=== PATIENT | male | born 1940 | race Caucasian/White ===

== ENCOUNTER → 2020-12-23 14:20 | Outpatient (BNVA) | payer MEDICARE, SELFPAY | PROVIDERS: PCP Internal Medicine; Visit Provider Urology | DX: Z13.89 Encounter for screening for other disorder (principal) | CPT/HCPCS: Q3014 ==

== ENCOUNTER → 2021-12-23 13:14 | Outpatient (BNVA) | payer MEDICARE, OTHER, SELFPAY | PROVIDERS: PCP Internal Medicine; Visit Provider Urology | DX: N40.0 Benign prostatic hyperplasia without lower urinary tract symptoms (principal); E29.1 Testicular hypofunction; N48.6 Induration penis plastica | CPT/HCPCS: 51798; 99212 ==

== ENCOUNTER 2022-12-28 14:11 | Outpatient (AMB) | payer MEDICARE, SELFPAY ==
--- NOTE | 2022-12-28 14:18 | A.OFFVIS_ITS ---
Intake Intake Visit Reasons: One year pvr Intake Note: * Patient presents today for a 1 year follow-up with PVR. * Meds- None * Allergies to Antibiotic- Penicillin * Blood Thinner- None * PVR- 0ml Middleware Engineer Required: No Accompanied by: Self / Same As Patient Allergies penicillin V Allergy (Unknown, Verified 12/28/22 14:19) Unknown tamsulosin [Flomax] Allergy (Unknown, Verified 12/28/22 14:19) Unknown Medication List - Last Reconciled 12/28/22 by Cha Conn MD fenofibrate nanocrystallized 145 mg PO DAILY oxycodone 10 mg PO PRN propranolol 20 mg PO TID PRN simvastatin 20 mg PO DAILY HPI HPI Comments History of Present Illness Details Benito is an 82-year-old male who presents for 1 year follow-up to check PVR. 12/29/22-- He is an 82-year-old male and patient of Dr. Diaz who is being followed for BPH symptoms and has symptoms of ED. Mentions having history of renal calculi 30 years ago. Evaluation today-- Blood: 80 Truong/uL, leukocytes: negative. Bladder scan PVR: 0 mL. Prostate exam-- smooth and irregular and no hard suspicious nodules palpated. I have discussed microscopic hematuria may be due to but not limited to kidney stones, BPH, cystitis, mass in the urinary tract. I have discussed work up to include evaluation of the urinary tract which may include imaging and cystoscopy. Plan: PSA blood work prior was ordered. Renal US prior was ordered. Cystoscopy discussed to be scheduled. Follow-up with Dr. Diaz after 3 months. [facility] Medical History Asthma BPH (benign prostatic hyperplasia) Erectile dysfunction Hematuria Hypogonadism in male Incomplete emptying of bladder Peyronie's disease Surgical History History of surgery Review of Systems Const All systems reviewed & are unremarkable except as noted in HPI and below Reports no additional complaints Eyes Reports no additional complaints ENT Reports no additional complaints Card Denies dyspnea Resp Denies cough and Denies dyspnea GI Reports no additional complaints Musc Reports no additional complaints Skin/Breast Denies rash and Denies unusual bruising Neuro Reports no additional complaints Psych Reports no additional complaints Endo Reports no additional complaints Niraj/Lymph Reports no additional complaints Aller/Immun Reports no additional complaints Physical Exam Const General: healthy appearing, no acute distress and well developed Orientation/consciousness: patient oriented x3 HEENT Head: Yes normocephalic and Yes atraumatic Eyes Conjunctivae: conjunctivae normal Neck Neck: Yes normal visual inspection Chest Chest palpation & inspection: normal inspection of the chest Resp Effort & Inspection: normal respiratory effort Cardio Rate: regular rate GI Inspection: Yes normal to inspection Palpation (GI): Soft to palpation Other: Prostate Exam: smooth, irregular Skin General skin exam: no rashes or lesions noted Neuro General: patient oriented x3 Extrem General: No pedal edema Psych Appearance: grossly normal Affect: normal affect Office Procedures Post Void Residual Post Residual Void Post Void Residual (PVR): 0 [id number] Void Residual by ultrasound Results AMB Urinalysis, Automated UA Leukoctes 0 Markel/uL Last Edit by PARKER Gilliam on 12/28/22 14:37 UA Nitrite Negative Last Edit by PARKER Gilliam on 12/28/22 14:37 UA Urobilinogen 0.2 mg/dL Last Edit by PARKER Gilliam on 12/28/22 14:3 7 UA Protein 0 mg/dL Last Edit by PARKER Gilliam on 12/28/22 14:37 UA pH 6.0 Last Edit by PARKER Gilliam on 12/28/22 14:37 UA Blood 80 Truong/uL Last Edit by PARKER Gilliam on 12/28/22 14:37 2+ Myrna Montemayor 12/28/22 14:37 UA Specific [place] 1.030 Last Edit by PARKER Gilliam on 12/28/22 14: 37 UA Ketone Negative Last Edit by PARKER Gilliam on 12/28/22 14:37 UA Bilirubin 0 mg/dL Last Edit by PARKER Gilliam on 12/28/22 14:37 UA Glucose 0 mg/dL Last Edit by PARKER Gilliam on 12/28/22 14:37 Results Reviewed Results Reviewed: Laboratory Last Values Urine pH (Auto) 6.0 12/28/22 14:26 Specific [place] (Auto) 1.030 12/28/22 14:26 Urine Protein (Auto) 0 mg/dL 12/28/22 14:26 Glucose (UA)(Auto) 0 mg/dL 12/28/22 14:26 Urine Ketones (Auto) Negative 12/28/22 14:26 Urine Blood (Auto) 80 Truong/uL 12/28/22 14:26 Urine Nitrite (Auto) Negative 12/28/22 14:26 Urine Bilirubin (Auto) 0 mg/dL 12/28/22 14:26 Urine Urobilinogen (Auto) 0.2 mg/dL 12/28/22 14:26 Leukocyte Esterase (Auto) 0 Markel/uL 12/28/22 14:26 Assessment & Plan Assessment & Plan (1) BPH (benign prostatic hyperplasia): Code(s): N40.0 - Benign prostatic hyperplasia without lower urinary tract symptoms (2) Hypogonadism in male: Code(s): E29.1 - Testicular hypofunction (3) Microscopic hematuria: Code(s): R31.29 - Other microscopic hematuria (4) Microscopic hematuria: Code(s): R31.29 - Other microscopic hematuria Plan PSA blood work prior was ordered. Renal US prior was ordered. Cystoscopy discussed to be scheduled. Follow-up with Dr. Diaz after 3 months. Orders: Orders US retroperitoneal comp 12/28/22 N40.0 - Benign prostatic hyperplasia without lower urinary tract symptoms, R31.29 - Other microscopic hematuria PSA,Total (Free>4and<10) 2 Months N40.0 - Benign prostatic hyperplasia without lower urinary tract symptoms AMB Urinalysis Automated 12/28/22 Z13.9 - Encounter for screening, unspecified AMB Post Void Residual by ultrasound 12/28/22 N39.8 - Other specified disorders of urinary system Patient Instructions: The patient had an opportunity to ask questions regarding treatment plan. All questions were answered. Laboratory studies and physical exam results were discussed and reviewed in detail. No major barriers to understanding were identified. The patient expressed understanding and agreement with the above treatment plan. The patient is aware they should contact our office by phone for worsening of their current condition or the appearance of new symptoms. Compliance is encouraged with any medications and followup testing that is ordered. It is a privilege to be allowed the opportunity to participate in the urologic care of your patient. If you have any questions or concerns regarding treatment for the above conditions please do not hesitate to contact me. The office telephone contact is [phone]. This note is constructed in part using voice recognition software. While every effort has been made to ensure accuracy pet walker errors may have been included. Yours sincerely, Cha Conn MD Coding Level of Care Code Est Pt Level 4 (48165) Diagnoses BPH (benign prostatic hyperplasia) N40.0 Hypogonadism in male E29.1 Microscopic hematuria R31.29 CPT Codes Post Residual Void - PVR CPT Code: 10913-Ghbr Void Residual by ultrasound ([id number])
== END 2022-12-28 14:55 | disposition home or self-care (01) ==
LOC: HO.HUSH 14:11
PROVIDERS: PCP Internal Medicine; Visit Provider Urology
DX: N40.0 Benign prostatic hyperplasia without lower urinary tract symptoms (principal); E29.1 Testicular hypofunction; R31.29 Other microscopic hematuria
CPT/HCPCS: 99214

== ENCOUNTER → 2022-12-28 14:11 | Outpatient (BNVA) | payer MEDICARE, SELFPAY | PROVIDERS: PCP Internal Medicine; Visit Provider Urology | DX: R31.29 Other microscopic hematuria (principal); N40.0 Benign prostatic hyperplasia without lower urinary tract symptoms; E29.1 Testicular hypofunction | CPT/HCPCS: 51798; 99212 ==

== ENCOUNTER 2023-03-20 09:34 | Outpatient (REF) | payer MEDICARE, SELFPAY ==
--- NOTE | ~2023-03-20 | US_ITS ---
EXAMINATION: US RETROPERITONEAL COMPLETE (RENAL) CLINICAL INFORMATION: Benign prostatic hyperplasia without lower urinary tract symptoms. COMPARISON: None available. TECHNIQUE: Real-time imaging of the kidneys and bladder. FINDINGS: RIGHT KIDNEY: 9.4 x 5.7 x 5.1 cm (SAG x AP x TRV). The kidney is normal in size, contour, and echogenicity. Renal cortical thickness is normal. No hydronephrosis. 1.6 cm Bosniak 1 simple cyst in the mid kidney. 2.6 cm Bosniak 1 simple cyst in the lower kidney. 1.2 cm Bosniak 2 cyst with thin mural calcium measuring less than 2 mm in the mid kidney. No follow-up imaging is recommended. 5 mm nonobstructing calculus in the upper pole. LEFT KIDNEY: 10.8 x 5.4 x 4.6 cm (SAG x AP x TRV). The kidney is normal in size, contour, and echogenicity. Renal cortical thickness is normal. No focal parenchymal lesions or hydronephrosis. 2 mm nonobstructing calculus in the upper pole. BLADDER: Well distended and normal. Bilateral ureteral jets are demonstrated. Prevoid bladder volume is 171 mL. Postvoid bladder volume is 56 mL. ADDITIONAL FINDINGS: Prostate volume 31 mL. US/US retroperitoneal comp IMPRESSION: Mildly enlarged prostate, 31 mL. No hydronephrosis. Post void bladder residual volume 56 mL. Bilateral nonobstructing renal calculi.
== END 2023-03-20 09:35 | disposition home or self-care (01) ==
LOC: HO.US 09:34
PROVIDERS: PCP Internal Medicine; Visit Provider Urology
DX: N40.0 Benign prostatic hyperplasia without lower urinary tract symptoms (principal); R31.29 Other microscopic hematuria
CPT/HCPCS: 76770

== ENCOUNTER 2023-04-04 08:47 | Outpatient (AMB) | payer MEDICARE, SELFPAY ==
--- NOTE | 2023-04-04 08:55 | MHC.OFFVIS ---
Intake Intake Visit Reasons: Cysto/US/PSA(set) Intake Note: Patient is Present for Follow Up Cystoscopy/us/psa Urology Medication: None Antibiotic Allergies: Penicillin Blood Thinners: None Pharmacy: [facility] Disposable Cystoscope LOT: EXP: Allergies penicillin V Allergy (Unknown, Verified 04/04/23 08:56) Unknown tamsulosin [Flomax] Allergy (Unknown, Verified 04/04/23 08:56) Unknown HPI HPI Comments History of Present Illness Details Benito Hua is a very pleasant male. They are a patient of Dr Byrd. They are seen in the office today for the following urologic conditions. - lower urinary tract symptoms Here for cystoscopy Episode of microscopic hematuria Large median lobe prostate regrowth - prior procedure many years ago Discussed intervention Would like to continue to follow-up Initiate finasteride Imaging renal cyst stable Prostate/Bladder: Benign prostatic hyperplasia (BPH) was diagnosed years ago - prior Tulip of prostate Severity of the symptoms that is moderate. Aggravating factors include fluid intake. Alleviating factors include avoiding liquids. Current medication(s) include none - CT stuffy nose with Flomax Recent labs included a PSA (prostate-specific antigen) May 2014 0.5, 10/24 1.0, 11/25 0.7. Investigative studies included a uroflow maximum flow 9.4, post void residual 94 cc. stable. Erectile dysfunction: discussed use of Viagra and other oral medications - decreased 2014. Symptoms have been present for/since years ago. Recent labs included a testosterone level - low. Current symptoms include trouble getting an erection, trouble sustaining an erection, reduced sexual desire. Severity of the symptoms is moderate. Also noted to have some deviation in the penis. We discussed Peyronie's disease. Treatment options were presented. Hypogonadism: Not interested in therapy. The patient also reports loss of libido occurring frequently. Other symptoms include decreased libido, fatigue, muscle weakness. Has been on testosterone gel in the past. [facility] Medical History Hematuria Asthma Peyronie's disease Hypogonadism in male Erectile dysfunction Incomplete emptying of bladder BPH (benign prostatic hyperplasia) Surgical History History of surgery Review of Systems Const Denies chills and Denies fever(s) Card Reports no additional complaints and Denies syncope Resp Denies cough GI Denies abdominal pain and Denies heartburn Reports as per HPI and Denies change in libido Neuro Denies syncope Psych Denies change in libido Endo Denies change in libido Physical Exam Const General: cooperative, healthy appearing, comfortable and no acute distress Orientation/consciousness: patient oriented x3 HEENT Face and sinus: Yes normal facial exam Mouth: moist mucous membranes Neck Neck: Yes normal visual inspection, Yes full ROM and Yes trachea midline Chest Chest palpation & inspection: normal inspection of the chest Resp Effort & Inspection: normal respiratory effort, able to speak in complete sentences and no respiratory distress GI Inspection: Yes normal to inspection Back/Spine/Pelvis Cervical Spine: normal cervical lordosis Thoracic/Lumbar Spine: thoracic and lumbar spine normal to inspection Skin General skin exam: no rashes or lesions noted Neuro General: patient oriented x3, gait normal, tone normal and moves all extremities Extrem General: Yes normal to inspection and Yes capillary refill normal Office Procedures Cystoscopy Consent Discussed risk and benefit or proposed procedure with the patient. Information consent for procedure given to the patient. Discussed technical aspects, risks, benefits and alternatives in full. Addressed all of the patient's questions and concerns regarding the procedure. The patient demonstrated knowledge and understanding. They wish to proceed with this procedure. Preparation The patient was prepped in the usual manner. A computer console operator was present and in the room. Genitalia was prepped with betadine solution in a sterile manner. Lidocaine Jelly 2% was placed into the urethra and 16Fr flexible Olympus cystoscope was inserted into the meatus after adequate lubrication. 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 - [id number] DISPOSABLE SCOPE URO-G FLEXIBLE SCOPE Procedure code (CPT) selection complete Office Meds lidocaine HCl 2 % mucosal jelly in applicator Performing Provider: Pantera Diaz MD [place] [facility] [place] [facility] Administered by: Jose Chambers LPN on 04/04/23 09:04 Dose Route Admin Location Dispensed Lot Number Expiration Date [facility] Digital Marketing Coordinator 10 mL intra-urethral 10 mL nitrofurantoin monohydrate/macrocrystals 100 mg capsule Performing Provider: Pantera Diaz MD Performing Location: [facility] [place] [facility] Administered by: Jose Chambers LPN on 04/04/23 09:04 Dose Route Admin Location Dispensed Lot Number Expiration Date NDC Digital Marketing Coordinator 100 mg PO 1 cap naproxen 500 mg tablet Performing Provider: Pantera Diaz MD Performing Location: [facility] [place] [facility] Administered by: Jose Chambers LPN on 04/04/23 09:04 Dose Route Admin Location Dispensed Lot Number Expiration Date NDC Digital Marketing Coordinator 500 mg PO 1 tab Results AMB Urinalysis, Automated UA Leukoctes 0 Markel/uL Last Edit by PARKER Hadley on 04/04/23 09:00 UA Nitrite Negative Last Edit by Shanon Dorman A on 04/04/23 09:00 UA Urobilinogen 0.2 mg/dL Last Edit by Shanon Dorman A on 04/04/23 09:00 UA Protein 0 mg/dL Last Edit by Shanon Dorman A on 04/04/23 09:00 UA pH 6.0 Last Edit by Shanon Dorman A on 04/04/23 09:00 UA Blood 10 Truong/uL Last Edit by MICHELLE HadleyA on 04/04/23 09:00 UA Specific [place] 1.020 Last Edit by Shanon Dorman A on 04/04/23 09:00 UA Ketone Negative Last Edit by MICHELLE HadleyA on 04/04/23 09:00 UA Bilirubin 0 mg/dL Last Edit by Shanon Dorman A on 04/04/23 09:00 UA Glucose 0 mg/dL Last Edit by Shanon Dorman A on 04/04/23 09:00 Results Reviewed Results Reviewed: Laboratory Last Values Urine pH (Auto) 6.0 04/04/23 08:57 Specific [place] (Auto) 1.020 04/04/23 08:57 Urine Protein (Auto) 0 mg/dL 04/04/23 08:57 Glucose (UA)(Auto) 0 mg/dL 04/04/23 08:57 Urine Ketones (Auto) Negative 04/04/23 08:57 Urine Blood (Auto) 10 Truong/uL 04/04/23 08:57 Urine Nitrite (Auto) Negative 04/04/23 08:57 Urine Bilirubin (Auto) 0 mg/dL 04/04/23 08:57 Urine Urobilinogen (Auto) 0.2 mg/dL 04/04/23 08:57 Leukocyte Esterase (Auto) 0 Markel/uL 04/04/23 08:57 Assessment & Plan Assessment & Plan (1) Peyronie's disease: Code(s): N48.6 - Induration penis plastica (2) Hypogonadism in male: Code(s): E29.1 - Testicular hypofunction (3) BPH (benign prostatic hyperplasia): Code(s): N40.0 - Benign prostatic hyperplasia without lower urinary tract symptoms Qualifiers: Lower urinary tract symptom presence: symptoms present Lower urinary tract symptom detail: weak urinary stream Qualified Code(s): N40.1 - Benign prostatic hyperplasia with lower urinary tract symptoms; R39.12 - Poor urinary stream Plan Trial finasteride Orders: Orders AMB Cystoscopy 04/04/23 R31.29 - Other microscopic hematuria PSA,Total (Free>4and<10) 03/09/23 N40.0 - Benign prostatic hyperplasia without lower urinary tract symptoms AMB Urinalysis Automated 04/04/23 Z13.9 - Encounter for screening, unspecified Medications: New finasteride 5 mg PO DAILY 90 tabs 1RF 90 days N13.8 - Other obstructive and reflux uropathy, N40.0 - Benign prostatic hyperplasia without lower urinary tract symptoms, N40.1 - Benign prostatic hyperplasia with lower urinary tract symptoms, R33.9 - Retention of urine, unspecified Patient Instructions: Imaging studies, laboratory and physical exam results were discussed and reviewed in detail. No major barriers to patient understanding were identified. An opportunity to ask questions regarding the treatment plan was provided. All questions were answered. The patient expressed understanding and agreement with the above treatment plan. The patient is aware they should contact our office by phone for worsening of their current condition or the appearance of new urologic symptoms. Compliance is encouraged with any medications and followup testing that is ordered. It is a privilege to participate in the urologic care of your patient. If you have any questions or concerns regarding treatment for the above conditions, or other urologic issues, please do not hesitate to contact me. The office telephone contact is [phone]. This note is constructed using voice recognition software. While every effort has been made to ensure accuracy size stamper errors may have been included. Yours sincerely, Dr Pantera Diaz MD, [facility] - Urology Providers of Expert, Compassionate Care for the Genitourinary System Coding Level of Care Code Est Pt Level 4 (30265) Diagnoses Peyronie's disease N48.6 Hypogonadism in male E29.1 Benign prostatic hyperplasia with weak urinary stream N40.1; R39.12 Lower urinary tract symptom presence: symptoms present Lower urinary tract symptom detail: weak urinary stream CPT Codes Cystoscopy - CPT: 01598-Bycddahmsy ([id number])
== END 2023-04-04 09:50 | disposition home or self-care (01) ==
PROVIDERS: PCP Internal Medicine; Visit Provider Urology
DX: N48.6 Induration penis plastica (principal); E29.1 Testicular hypofunction; N40.1 Benign prostatic hyperplasia with lower urinary tract symptoms; R39.12 Poor urinary stream
CPT/HCPCS: 52000; 99214

== ENCOUNTER → 2023-04-04 08:47 | Outpatient (BNVA) | payer MEDICARE, SELFPAY | PROVIDERS: PCP Internal Medicine; Visit Provider Urology | DX: N40.1 Benign prostatic hyperplasia with lower urinary tract symptoms (principal); R39.12 Poor urinary stream; N48.6 Induration penis plastica; E29.1 Testicular hypofunction | CPT/HCPCS: 52000; 81003; 99212 ==

== ENCOUNTER 2023-09-17 10:39 | Outpatient (REF) | payer MEDICARE, SELFPAY ==
[2023-09-17 12:37] LABS: PSA,Total (Free>4and<10) 0.28 ng/mL (0.00-4.00)
== END 2023-09-17 10:40 | disposition home or self-care (01) ==
LOC: HO.LAB 10:39
PROVIDERS: PCP Internal Medicine; Visit Provider Urology
DX: Z12.5 Encounter for screening for malignant neoplasm of prostate (principal); N40.0 Benign prostatic hyperplasia without lower urinary tract symptoms
CPT/HCPCS: 36415; 84153

== ENCOUNTER 2023-09-25 09:36 | Outpatient (AMB) | payer MEDICARE, SELFPAY ==
--- NOTE | 2023-09-25 09:43 | A.OFFVIS_ITS ---
Intake Intake Visit Reasons: 6M PSA/PVR(set)Confirmed Intake Note: Patient is Present for Follow Up PVR/PSA Urology Medication: Finasteride Antibiotic Allergies: Penicillin Blood Thinners: None PVR: 20 Allergies penicillin V Allergy (Unknown, Verified 09/25/23 09:44) Unknown tamsulosin [Flomax] Allergy (Unknown, Verified 09/25/23 09:44) Unknown HPI HPI Comments History of Present Illness Details Benito Hua is a very pleasant male. They are a patient of Dr Byrd. They are seen in the office today for the following urologic conditions. - lower urinary tract symptoms Follow-up from finasteride PVR 20 cc - significant improvement Feels any marginal improvement in symptoms Has minimal nocturia Main issue is urgency Did discuss procedure again Will consider Cystoscopy 2022 Large median lobe prostate regrowth - prior procedure many years ago Prior discussion GreenLight laser Lower urinary tract symptoms Benign prostatic hyperplasia (BPH) was diagnosed years ago - prior Tulip of prostate Severity of the symptoms that is moderate. Aggravating factors include fluid intake. Alleviating factors include avoiding liquids. Current medication(s) include none - CT stuffy nose with Flomax Recent labs included a PSA (prostate-specific antigen) May 2014 0.5, 10/24 1.0, 11/25 0.7. Investigative studies included a uroflow maximum flow 9.4, post void residual 94 cc. stable. Erectile dysfunction: discussed use of Viagra and other oral medications - decreased 2014. Symptoms have been present for/since years ago. Recent labs included a testosterone level - low. Current symptoms include trouble getting an erection, trouble sustaining an erection, reduced sexual desire. Severity of the symptoms is moderate. Also noted to have some deviation in the penis. We discussed Peyronie's disease. Treatment options were presented. Hypogonadism: Not interested in therapy. The patient also reports loss of libido occurring frequently. Other symptoms include decreased libido, fatigue, muscle weakness. Has been on testosterone gel in the past. [facility] Medical History Hematuria Asthma Peyronie's disease Hypogonadism in male Erectile dysfunction Incomplete emptying of bladder BPH (benign prostatic hyperplasia) Surgical History History of surgery Review of Systems Const Denies chills and Denies fever(s) Card Reports no additional complaints and Denies syncope Resp Denies cough GI Denies abdominal pain and Denies heartburn Reports as per HPI and Denies change in libido Neuro Denies syncope Psych Denies change in libido Endo Denies change in libido Physical Exam Const General: cooperative, healthy appearing, comfortable and no acute distress Orientation/consciousness: patient oriented x3 HEENT Face and sinus: Yes normal facial exam Mouth: moist mucous membranes Neck Neck: Yes normal visual inspection, Yes full ROM and Yes trachea midline Chest Chest palpation & inspection: normal inspection of the chest Resp Effort & Inspection: normal respiratory effort, able to speak in complete sentences and no respiratory distress GI Inspection: Yes normal to inspection Back/Spine/Pelvis Cervical Spine: normal cervical lordosis Thoracic/Lumbar Spine: thoracic and lumbar spine normal to inspection Skin General skin exam: no rashes or lesions noted Neuro General: patient oriented x3, gait normal, tone normal and moves all extremities Extrem General: Yes normal to inspection and Yes capillary refill normal Office Procedures Post Void Residual Post Residual Void Post Void Residual (PVR): 20 [id number] Void Residual by ultrasound Assessment & Plan Assessment & Plan (1) Microscopic hematuria: Code(s): R31.29 - Other microscopic hematuria (2) Peyronie's disease: Code(s): N48.6 - Induration penis plastica (3) BPH (benign prostatic hyperplasia): Code(s): N40.0 - Benign prostatic hyperplasia without lower urinary tract symptoms Qualifiers: Lower urinary tract symptom presence: symptoms present Lower urinary tract symptom detail: weak urinary stream Qualified Code(s): N40.1 - Benign prostatic hyperplasia with lower urinary tract symptoms; R39.12 - Poor urinary stream Plan Effective emptying Six-month follow-up Orders: Orders AMB Post Void Residual by ultrasound Today N40.1 - Benign prostatic hyperplasia with lower urinary tract symptoms, R39.12 - Poor urinary stream Patient Instructions: Imaging studies, laboratory and physical exam results were discussed and reviewed in detail. No major barriers to patient understanding were identified. An opportunity to ask questions regarding the treatment plan was provided. All questions were answered. The patient expressed understanding and agreement with the above treatment plan. The patient is aware they should contact our office by phone for worsening of their current condition or the appearance of new urologic symptoms. Compliance is encouraged with any medications and followup testing that is ordered. It is a privilege to participate in the urologic care of your patient. If you have any questions or concerns regarding treatment for the above conditions, or other urologic issues, please do not hesitate to contact me. The office telephone contact is [phone]. This note is constructed using voice recognition software. While every effort has been made to ensure accuracy title assistant errors may have been included. Yours sincerely, Dr Pantera Diaz MD, [facility] - Urology Providers of Expert, Compassionate Care for the Genitourinary System Coding Level of Care Code Est Pt Level 4 (95411) Diagnoses Microscopic hematuria R31.29 Peyronie's disease N48.6 Benign prostatic hyperplasia with weak urinary stream N40.1; R39.12 Lower urinary tract symptom presence: symptoms present Lower urinary tract symptom detail: weak urinary stream CPT Codes Post Residual Void - PVR CPT Code: 98977-Kcyc Void Residual by ultrasound ([id number])
== END 2023-09-25 10:05 | disposition home or self-care (01) ==
LOC: HO.HUSH 09:36
PROVIDERS: PCP Internal Medicine; Visit Provider Urology
DX: R31.29 Other microscopic hematuria (principal); N48.6 Induration penis plastica; N40.1 Benign prostatic hyperplasia with lower urinary tract symptoms; R39.12 Poor urinary stream
CPT/HCPCS: 99214

== ENCOUNTER → 2023-09-25 09:36 | Outpatient (BNVA) | payer MEDICARE, SELFPAY | PROVIDERS: PCP Internal Medicine; Visit Provider Urology | DX: R31.29 Other microscopic hematuria (principal); N48.6 Induration penis plastica; N40.0 Benign prostatic hyperplasia without lower urinary tract symptoms; R39.12 Poor urinary stream | CPT/HCPCS: 51798; 99212 ==

== ENCOUNTER 2024-04-01 08:12 | Outpatient (AMB) | payer MEDICARE, SELFPAY ==
--- NOTE | 2024-04-01 08:27 | MHC.OFFVIS ---
Intake Visit Reasons: 6M Follow Up-PVR Intake Note: Patient is Present for Follow Up PVR Urology Medication: Finasteride Antibiotic Allergies: Penicillin Blood Thinners: None PVR: 20 today's pvr: Teasel Gig Operator Required: No Allergies penicillin V Allergy (Unknown, Verified 04/01/24 08:29) Unknown tamsulosin [Flomax] Allergy (Unknown, Verified 04/01/24 08:29) Unknown HPI Comments Details: Benito Hua is a very pleasant male. They are a patient of Dr Byrd. They are seen in the office today for the following urologic conditions. - lower urinary tract symptoms Six-month follow-up Minimal PVR Off finasteride 12 month follow-up Cystoscopy 2022 Large median lobe prostate regrowth - prior procedure many years ago Prior discussion GreenLight laser Lower urinary tract symptoms Benign prostatic hyperplasia (BPH) was diagnosed years ago - prior Tulip of prostate Severity of the symptoms that is moderate. Aggravating factors include fluid intake. Alleviating factors include avoiding liquids. Current medication(s) include none - CT stuffy nose with Flomax Recent labs included a PSA (prostate-specific antigen) May 2014 0.5, 10/24 1.0, 11/25 0.7, 09/29 0.3 Investigative studies included a uroflow maximum flow 9.4, post void residual 94 cc. stable. Erectile dysfunction: discussed use of Viagra and other oral medications - decreased 2014. Symptoms have been present for/since years ago. Recent labs included a testosterone level - low. Current symptoms include trouble getting an erection, trouble sustaining an erection, reduced sexual desire. Severity of the symptoms is moderate. Also noted to have some deviation in the penis. We discussed Peyronie's disease. Treatment options were presented. Hypogonadism: Not interested in therapy. The patient also reports loss of libido occurring frequently. Other symptoms include decreased libido, fatigue, muscle weakness. Has been on testosterone gel in the past. [facility] Medical History Hematuria Asthma Peyronie's disease Hypogonadism in male Erectile dysfunction Incomplete emptying of bladder BPH (benign prostatic hyperplasia) Surgical History History of surgery Review of Systems Const Denies chills and Denies fever(s) Card Reports no additional complaints and Denies syncope Resp Denies cough GI Denies abdominal pain and Denies heartburn Reports as per HPI and Denies change in libido Neuro Denies syncope Psych Denies change in libido Endo Denies change in libido Physical Exam Const General: cooperative, healthy appearing, comfortable and no acute distress Orientation/consciousness: patient oriented x3 HEENT Face and sinus: Yes normal facial exam Mouth: moist mucous membranes Neck Neck: Yes normal visual inspection, Yes full ROM and Yes trachea midline Chest Chest palpation & inspection: normal inspection of the chest Resp Effort & Inspection: normal respiratory effort, able to speak in complete sentences and no respiratory distress GI Inspection: Yes normal to inspection Back/Spine/Pelvis Cervical Spine: normal cervical lordosis Thoracic/Lumbar Spine: thoracic and lumbar spine normal to inspection Skin General skin exam: no rashes or lesions noted Neuro General: patient oriented x3, gait normal, tone normal and moves all extremities Extrem General: Yes normal to inspection and Yes capillary refill normal Results AMB Urinalysis, Automated UA Leukoctes 0 Markel/uL Last Edit by TAMEKA Miramontes on 04/01/24 08:41 UA Nitrite Negative Last Edit by TAMEKA Miramontes on 04/01/24 08:41 UA Urobilinogen 0.2 mg/dL Last Edit by TAMEKA Miramontes on 04/01/24 08:41 UA Protein 0 mg/dL Last Edit by TAMEKA Miramontes on 04/01/24 08:41 UA pH 5.5 Last Edit by TAMEKA Miramontes on 04/01/24 08:41 UA Blood 80 Truong/uL Last Edit by TAMEKA Miramontes on 04/01/24 08:41 UA Specific [place] 1.025 Last Edit by TAMEKA Miramontes on 04/01/24 08:41 UA Ketone Negative Last Edit by TAMEKA Miramontes on 04/01/24 08:41 UA Bilirubin 0 mg/dL Last Edit by TAMEKA Miramontes on 04/01/24 08:41 UA Glucose 0 mg/dL Last Edit by TAMEKA Miramontes on 04/01/24 08:41 Results Reviewed Results Reviewed: Laboratory Last Values Urine pH (Auto) 5.5 04/01/24 08:40 Specific [place] (Auto) 1.025 04/01/24 08:40 Urine Protein (Auto) 0 mg/dL 04/01/24 08:40 Glucose (UA)(Auto) 0 mg/dL 04/01/24 08:40 Urine Ketones (Auto) Negative 04/01/24 08:40 Urine Blood (Auto) 80 Truong/uL 04/01/24 08:40 Urine Nitrite (Auto) Negative 04/01/24 08:40 Urine Bilirubin (Auto) 0 mg/dL 04/01/24 08:40 Urine Urobilinogen (Auto) 0.2 mg/dL 04/01/24 08:40 Leukocyte Esterase (Auto) 0 Markel/uL 04/01/24 08:40 Assessment & Plan Assessment & Plan (1) Microscopic hematuria: Code(s): R31.29 - Other microscopic hematuria Category: Medical (2) Peyronie's disease: Code(s): N48.6 - Induration penis plastica Category: Medical (3) BPH (benign prostatic hyperplasia): Code(s): N40.0 - Benign prostatic hyperplasia without lower urinary tract symptoms Category: Medical Qualifiers: Lower urinary tract symptom presence: symptoms present Lower urinary tract symptom detail: weak urinary stream Qualified Code(s): N40.1 - Benign prostatic hyperplasia with lower urinary tract symptoms; R39.12 - Poor urinary stream Plan Twelve month follow-up Orders: Orders AMB Urinalysis Automated Today Z13.9 - Encounter for screening, unspecified Patient Instructions: Imaging studies, laboratory and physical exam results were discussed and reviewed in detail. No major barriers to patient understanding were identified. An opportunity to ask questions regarding the treatment plan was provided. All questions were answered. The patient expressed understanding and agreement with the above treatment plan. The patient is aware they should contact our office by phone for worsening of their current condition or the appearance of new urologic symptoms. Compliance is encouraged with any medications and followup testing that is ordered. It is a privilege to participate in the urologic care of your patient. If you have any questions or concerns regarding treatment for the above conditions, or other urologic issues, please do not hesitate to contact me. The office telephone contact is [phone]. This note is constructed using voice recognition software. While every effort has been made to ensure accuracy artist consultant errors may have been included. Yours sincerely, Dr Pantera Diaz MD, AKIR[facility] - Urology Providers of Expert, Compassionate Care for the Genitourinary System Coding Level of Care Code Est Pt Level 3 (58197) Diagnoses Microscopic hematuria R31.29 Peyronie's disease N48.6 Benign prostatic hyperplasia with weak urinary stream N40.1; R39.12 Lower urinary tract symptom presence: symptoms present Lower urinary tract symptom detail: weak urinary stream
== END 2024-04-01 08:51 | disposition home or self-care (01) ==
PROVIDERS: PCP Internal Medicine; Visit Provider Urology
DX: R31.29 Other microscopic hematuria (principal); N48.6 Induration penis plastica; N40.1 Benign prostatic hyperplasia with lower urinary tract symptoms; R39.12 Poor urinary stream; Z13.9 Encounter for screening, unspecified
CPT/HCPCS: 99213

== ENCOUNTER → 2024-04-01 08:12 | Outpatient (BNVA) | payer MEDICARE, SELFPAY | PROVIDERS: PCP Internal Medicine; Visit Provider Urology | DX: N40.1 Benign prostatic hyperplasia with lower urinary tract symptoms (principal); R31.29 Other microscopic hematuria; R39.12 Poor urinary stream; N48.6 Induration penis plastica | CPT/HCPCS: 51798; 81003; 99212 ==

== ENCOUNTER 2025-04-01 08:20 | Outpatient (AMB) | payer MEDICARE, SELFPAY ==
--- NOTE | 2025-04-01 08:20 | A.OFFVIS_ITS ---
Intake Visit Reasons: 1 year PVR Intake Note: Patient is Present for 1 yr Follow Up Urology Medication: none Antibiotic Allergies: Penicillin Blood Thinners: None PVR: 10 mls Plumber Supervisor Required: No Accompanied by: Self / Same As Patient Allergies penicillin V Allergy (Unknown, Verified 04/01/25 08:21) Unknown tamsulosin (Flomax) Allergy (Unknown, Verified 04/01/25 08:21) Unknown HPI Comments Details: Benito Hua is a very pleasant male. They are a patient of Dr Byrd. They are seen in the office today for the following urologic conditio ns. - lower urinary tract symptoms Yearly follow-up UA 2+ blood Minimal PVR Off finasteride 12 month follow-up Cystoscopy 2022 Large median lobe prostate regrowth - prior procedure many years ago Prior discussion GreenLight laser Discussed urinary stream and effective emptying Able to void greater than 18 in and less than 30 seconds Lower urinary tract symptoms Benign prostatic hyperplasia (BPH) was diagnosed years ago - prior Tulip of prostate Severity of the symptoms that is moderate. Aggravating factors include fluid intake. Alleviating factors include avoiding liquids. Current medication(s) include none - CT stuffy nose with Flomax Recent labs included a PSA (prostate-specific antigen) May 2014 0.5, 10/24 1.0, 11/25 0.7, 09/29 0.3 Investigative studies included a uroflow maximum flow 9.4, post void residual 94 cc. stable. Erectile dysfunction: discussed use of Viagra and other oral medications - decreased 2014. Symptoms have been present for/since years ago. Recent labs included a testosterone level - low. Current symptoms include trouble getting an erection, trouble sustaining an erection, reduced sexual desire. Severity of the symptoms is moderate. Also noted to have some deviation in the penis. We discussed Peyronie's disease. Treatment options were presented. Hypogonadism: Not interested in therapy. The patient also reports loss of libido occurring frequently. Other symptoms include decreased libido, fatigue, muscle weakness. Has been on testosterone gel in the past. [facility] Medical History Hematuria Asthma Peyronie's disease Hypogonadism in male Erectile dysfunction Incomplete emptying of bladder BPH (benign prostatic hyperplasia) Surgical History History of surgery Review of Systems Const Denies chills and Denies fever(s) Card Reports no additional complaints and Denies syncope Resp Denies cough GI Denies abdominal pain and Denies heartburn Reports as per HPI and Denies change in libido Neuro Denies syncope Psych Denies change in libido Endo Denies change in libido Physical Exam Const General: cooperative, healthy appearing, comfortable and no acute distress Orientation/consciousness: patient oriented x3 HEENT Face and sinus: Yes normal facial exam Mouth: moist mucous membranes Neck Neck: Yes normal visual inspection, Yes full ROM and Yes trachea midline Chest Chest palpation & inspection: normal inspection of the chest Resp Effort & Inspection: normal respiratory effort, able to speak in complete sentences and no respiratory distress GI Inspection: Yes normal to inspection Back/Spine/Pelvis Cervical Spine: normal cervical lordosis Thoracic/Lumbar Spine: thoracic and lumbar spine normal to inspection Skin General skin exam: no rashes or lesions noted Neuro General: patient oriented x3, gait normal, tone normal and moves all extremities Extrem General: Yes normal to inspection and Yes capillary refill normal Assessment & Plan Assessment & Plan (1) BPH (benign prostatic hyperplasia): Code(s): N40.0 - Benign prostatic hyperplasia without lower urinary tract symptoms Category: Medical Qualifiers: Lower urinary tract symptom presence: symptoms present Lower urinary tract symptom detail: weak urinary stream Qualified Code(s): N40.1 - Benign prostatic hyperplasia with lower urinary tract symptoms; R39.12 - Poor urinary stream (2) Peyronie's disease: Code(s): N48.6 - Induration penis plastica Category: Medical (3) Microscopic hematuria: Code(s): R31.29 - Other microscopic hematuria Category: Medical Plan Twelve month follow-up UA and PVR Patient Instructions: This note is constructed using voice recognition software. While every effort has been made to ensure accuracy vulnerability assessment analyst errors may have been included. Imaging studies, laboratory and physical exam results were discussed and reviewed in detail. No major barriers to patient understanding were identified. An opportunity to ask questions regarding the treatment plan was provided. All questions were answered. The patient expressed understanding and agreement with the above treatment plan. The patient is aware they should contact our office by phone for worsening of their current condition or the appearance of new urologic symptoms. Compliance is encouraged with any medications and followup testing that is ordered. It is a privilege to participate in the urologic care of your patient. If you have any questions or concerns regarding treatment for the above conditions, or other urologic issues, please do not hesitate to contact me. The office telephone contact is [phone]. Sincerely, Dr Pantera Diaz MD, [facility] - Urology Compassionate Specialist Care for the Genitourinary System Coding Level of Care Code Est Pt Level 4 (89840) Complex EM visit Add On G2211 Diagnoses Benign prostatic hyperplasia with weak urinary stream N40.1; R39.12 Lower urinary tract symptom presence: symptoms present Lower urinary tract symptom detail: weak urinary stream Peyronie's disease N48.6 Microscopic hematuria R31.29
--- OUTSIDE RECORDS SUMMARY | 2025-04-01 09:05 | XMS_ITS | Clinical Summary ---
Author Organization [facility] Address [address] [address] Phone Care Team Providers Care Phlebotomy Director Name Role Phone Ra Linares MD Primary Care Provider [phone] Allergies No known active allergies Medications No known medications Active Problems No known active problems Social History Tobacco Use Types Packs/Day Years Used Date Smoking Tobacco: Never Assessed Education Answer Date Recorded Are you interested in more education? Not on carina e 11/05/2022 Are you concerned about learning? Not on file 11/05/2022 No 11/05/2022 No 11/05/2022 Digital Access Answer Date Recorded No 12/03/2022 No 12/03/2022 Reliable internet access at home? Not on file 12/03/2022 Device with a working camera? Not on file Sex and Gender Information Value Date Recorded Sex Assigned at Not on file Legal Sex Male 4:58 PM EST Gender Identity Not on file Sexual Orientation Not on file Plan of Treatment Health Maintenance Due Date Last Done Comments DEPRESSION SCREENING 1952 PNEUMOCOCCAL VACCINES (50+ years) (1 of 1 - PCV) 1990 RSV VACCINE (1 - 1-dose 75+ series) 2015 INFLUENZA VACCINE (#1) 2025 , 03/25/2018, 03/21/2017, Additional history exists COVID-19 VACCINE ( - season) 2025 08/31/2020, 08/09/2020 Adult Td,Tdap Booster 03/21/2027 03/21/2017 ZOSTER VACCINES Completed 01/24/2019, 09/30/2018 HEPATITIS A VACCINES Aged Out No long er eligible based on patient's age to complete this topic HIB VACCINES Aged Out No longer eligi ble based on patient's age to complete this topic MENINGOCOCCAL VACCINES (ACWY) Aged Out No longer eligible based on patient's age to complete this topic MENINGOCOCCAL VACCINES (B) Aged Out N o longer eligible based on patient's age to complete this topic Medical Devices Not on file Insurance MEDICARE PART A & B Member Subscriber Plan / Payer (Ef fective for All Dates) Name:McBenito dickinson Member ID:[id number] Relation to Subscriber:Self Name:DanearnolBenito dickinson Subscriber ID:[id number] Payer ID:[id number] Group ID:Not on file Type:Medicare Address: [facility] [address] [place] [id number] [facility] B Member Subscriber Plan / Payer (Ef fective for All Dates) Name:McBenito dickinson Member ID:[id number] Relation to Subscriber:Self Name:McBenito dickinson Subscriber ID:[id number] Payer ID:[id number] Group ID:Not on file Type:Medicare Address: [employer] [address] [facility] HMO MEDICARE PART A & B [facility] B Member Subscriber Plan / Payer (Ef fective for All Dates) Name:Benito Hua Member ID:[id number] Relation to Subscriber:Self Name:Benito Hua Subscriber ID:[id number] Payer ID:[id number] Group ID:Not on file Type:Medicare Address: [employer] [address] [place] [id number] [facility] HMO MEDICARE PART A & B [facility] B Member Subscriber Plan / Payer (Ef fective for All Dates) Name:Benito Hua Member ID:[id number] Relation to Subscriber:Self Name:Benito Hua Subscriber ID:[id number] Payer ID:[id number] Group ID:Not on file Type:Medicare Address: [employer] [address] HEALTHCARE HMO MEDICARE PART A & B Member Subscriber Plan / Payer (Ef fective for All Dates) Name:Benito Hua Member ID:[id number] Relation to Subscriber:Self Name:Benito Hua Subscriber ID:[id number] Payer ID:[id number] Group ID:Not on file Type:Medicare Address: [employer] [address] [place] [id number] [facility] H[facility] MEDICARE PART A & B O MEDICARE PART A & B [facility] Member Subscriber Plan / Payer (Ef fective 2005-Present) Name:Benito Hua Relation to Subscriber:Self Name:Benito Hua Payer ID:[id number] (NAIC) Type:O Address: [facility] [id number] MEDICARE REPLACEMENT Care Teams Phlebotomy Director Relationship Specialty Start Date End Date Ra Linares MD [address] [address] PCP - General Internal Medicine 02/28/23 Additional Source Comments The information contained in this document represents components of the legal health record. It is not the complete legal health record.[facility]
== END 2025-04-01 09:16 | disposition home or self-care (01) ==
PROVIDERS: PCP Internal Medicine; Visit Provider Urology
DX: N40.1 Benign prostatic hyperplasia with lower urinary tract symptoms (principal); R39.12 Poor urinary stream; N48.6 Induration penis plastica; R31.29 Other microscopic hematuria; Z13.9 Encounter for screening, unspecified
CPT/HCPCS: 99214; G2211

== ENCOUNTER 2025-04-01 08:20 | Outpatient (REF) | payer MEDICARE, SELFPAY ==
--- OUTSIDE RECORDS SUMMARY | 2025-04-01 18:10 | XMS_ITS | Clinical Summary ---
Author Organization [facility] Address [address] [address] Phone Care Team Providers Care Advertising Assistant Manager Name Role Phone Ra Linares MD Primary Care Provider [phone] Allergies No known active allergies Medications No [...] file Insurance MEDICARE PART A & B [facility] Member Subscriber Plan / Payer (Ef fective for All Dates) Name:McBenito dickinson Member ID:[id number] Relation to Subscriber:Self Name:McBenito dickinson Subscriber ID:[id number] Payer ID:[id number] Group ID:Not on file Type:Medicare Address: [employer] [address] [facility] HMO MEDICARE PART A & B [facility] & B Member Subscriber Plan / Payer (Ef fective for All Dates) Name:Benito Hua Member ID:[id number] Relation to Subscriber:Self Name:Benito Hua Subscriber ID:[id number] Payer ID:[id number] Group ID:Not on file Type:Medicare Address: [employer] [address] [place] [phone] [facility] HMO MEDICARE PART A & B [facility] B Member Subscriber Plan / Payer (Ef fective for All Dates) Name:Benito Hua Member ID:[id number] Relation to Subscriber:Self Name:Benito Hua Subscriber ID:[id number] Payer ID:[id number] Group ID:Not on file Type:Medicare Address: [employer] [address] HEALTHCARE HMO MEDICARE PART A & B Member Subscriber Plan / Payer (Ef fective for All Dates) Name:Benito Hua Member ID:[id number] Relation to Subscriber:Self Name:Benito Hua Subscriber ID:[id number] Payer ID:[id number] Group ID:Not on file Type:Medicare Address: [employer] [address] [place] [id number] [facility] HMO MEDICARE PART A & B O MEDICARE PART A & B [facility] Member Subscriber Plan / Payer (Ef fective 2005-Present) Name:Benito Hua Relation to Subscriber:Self Name:Benito Hua Payer ID:[id number] (NAIC) Type:O Address: [facility] [id number] MEDICARE REPLACEMENT Care Teams Advertising Assistant Manager Relationship Specialty Start Date End Date Ra Linares MD [address] [address] PCP - General Internal Medicine 02/28/23 Additional Source Comments The information contained in this document represents components of the legal health record. It is not the complete legal health record.[facility]
== END 2025-04-01 08:21 | disposition home or self-care (01) ==
LOC: HO.LNP 08:20
PROVIDERS: PCP Internal Medicine; Visit Provider Urology
DX: N40.1 Benign prostatic hyperplasia with lower urinary tract symptoms (principal); N48.6 Induration penis plastica; R39.12 Poor urinary stream; R31.29 Other microscopic hematuria
CPT/HCPCS: 51798; 81003; 88112; 99212